=== PATIENT | male | born 1965 | race Caucasian/White ===

== ENCOUNTER 2019-02-18 08:21 | Day surgery (SDC) | payer BC, OTHER ==
[~2019-02-18] VITALS: Ht 182.9 cm; Wt 111.3 kg
[2019-02-18 08:49] VITALS: BP 147/93; PULSE 81; TEMP 98.3
[2019-02-18] MEDS ORDERED: ZOCOR 40MG40 MG PO (09:00)
[2019-02-18] MEDS ORDERED: NEXIUM 20MG20 MG PO (09:00)
[2019-02-18] MEDS ORDERED: ONE DAILY MULTI1 TA1 PO (09:01)
[2019-02-18] MEDS ORDERED: ASPIRIN E.C. 8181 MG PO (09:01)
[2019-02-18] MEDS ORDERED: ZANTAC 150MG T150 MG PO (09:02)
[2019-02-18] MEDS ORDERED: GAS RELIEF125 MG PO (09:02)
[2019-02-18] MEDS ORDERED: PROBIOTIC FORMU1 CAP PO (09:03)
--- NOTE | 2019-02-18 09:04 | NUR ---
TO [facility] AT 0825- CALL LIGHT IN REACH AUNT WILL BE HIS RIDE HOME
[2019-02-18 11:00] VITALS: BP 124/88; PULSE 69; TEMP 98.2
--- NOTE | 2019-02-18 11:00 | NUR ---
Pt to [facility] via cart. Pt drowsy, but awake. Pt ambulates to recliner with stand by assistance. Pt request to use restroom, and was assisted to restroom with 1 stand by assist. Once back in room, VS obtained. Pt refused anything to eat or drink as he wants to go to a resturant after dismissal. Sister in room. Call light within reach.
[2019-02-18 11:15] VITALS: BP 123/88; PULSE 65
--- NOTE | 2019-02-18 11:15 | NUR ---
Pt continues to rest. Denies needs at this time.
[2019-02-18 11:30] VITALS: BP 137/94; PULSE 67
--- NOTE | 2019-02-18 11:30 | NUR ---
Discharge instructions reviewd. Pt voices understanding. IV site discontinued with all parts intact. Pt up to dress. Call light within reach.
--- NOTE | 2019-02-18 11:45 | NUR ---
Pt escorted to private car via wheel chair. Pt accompanied home by his sister.
== END 2019-02-18 11:45 | disposition home or self-care (01) ==
LOC: SDCO 08:21
DX: Z12.11 Encounter for screening for malignant neoplasm of colon (principal); D12.3 Benign neoplasm of transverse colon; K57.30 Diverticulosis of large intestine without perforation or abscess without bleeding; E66.9 Obesity, unspecified; I10 Essential (primary) hypertension; E88.81 Metabolic syndrome and other insulin resistance; E78.5 Hyperlipidemia, unspecified; K21.9 Gastro-esophageal reflux disease without esophagitis; K58.9 Irritable bowel syndrome, unspecified; F17.290 Nicotine dependence, other tobacco product, uncomplicated; Z79.82 Long term (current) use of aspirin
CPT/HCPCS: J2704; J7030

== ENCOUNTER 2019-05-17 18:17 | Emergency (ER) | payer BC, OTHER ==
[~2019-05-17] VITALS: Ht 182.9 cm; Wt 63.6 kg
[~2019-05-17 18:17] MED LIST: ASPIRIN E.C. 8181 MG PO; GAS RELIEF125 MG PO; NEXIUM 20MG20 MG PO; ONE DAILY MULTI1 TA1 PO; PROBIOTIC FORMU1 CAP PO; ZANTAC 150MG T150 MG PO; ZOCOR 40MG40 MG PO
[2019-05-17 18:24] VITALS: BP 150/86; TEMP 98.6
[2019-05-17 20:00] VITALS: PULSE 89
== END 2019-05-17 20:00 | disposition home or self-care (01) ==
LOC: COL.ER 18:17
DX: S61.211A Laceration without foreign body of left index finger without damage to nail, initial encounter (principal); E78.5 Hyperlipidemia, unspecified; Z79.82 Long term (current) use of aspirin; Z23 Encounter for immunization; W26.0XXA Contact with knife, initial encounter; Y92.009 Unspecified place in unspecified non-institutional (private) residence as the place of occurrence of the external cause

== ENCOUNTER → 2021-01-04 | Outpatient (REF) | payer BC, OTHER | LOC: PT.GENESIS 07:28 | DX: S39.011D Strain of muscle, fascia and tendon of abdomen, subsequent encounter (principal) ==

== ENCOUNTER 2021-03-04 05:31 | Emergency (ER) | payer OTHER ==
[~2021-03-04] VITALS: Ht 182.9 cm; Wt 109.1 kg
[2021-03-04 05:37] VITALS: TEMP 98.1
[2021-03-05 06:00] VITALS: BP 140/61; PULSE 80
== END 2021-03-04 06:30 | disposition home or self-care (01) ==
LOC: COL.ER 05:31
DX: T59.811A Toxic effect of smoke, accidental (unintentional), initial encounter (principal); X08.8XXA Exposure to other specified smoke, fire and flames, initial encounter